=== PATIENT | female | born 1990 | race Caucasian/White ===

== ENCOUNTER 2024-07-02 15:32 | Inpatient (IN) | payer BC ==
[2024-07-02] MEDS ORDERED: LIDOCAINE 0.5% (PF) 5 MG/ML (50 ML SDV) SQ PRN (16:16)
[2024-07-02] MEDS ORDERED: OXYTOCIN 10 UNIT/ML 1 ML VIAL IM PRN (16:16)
[2024-07-02] MEDS ORDERED: METHYLERGONOVINE 0.2 MG/ML 1 ML AMP IM PRN ×2 (16:16→20:17)
[2024-07-02] MEDS ORDERED: miSOPROStoL 200 MCG TAB RECTAL PRN (16:16)
[2024-07-02] MEDS ORDERED: TRANEXAMIC 1,000 MG/100ML-NACL 1,000 MG in EMPTY BAG 1 BAG IV PRN (16:16)
[2024-07-02] MEDS ORDERED: CARBOPROST TROMETHAMINE 250 MCG/ML 1 ML AMP IM PRN ×2 (16:16→20:17)
[2024-07-02] MEDS ORDERED: miSOPROStoL 200 MCG TAB PO PRN (16:16)
[2024-07-02] MEDS ORDERED: TERBUTALINE 1 MG/ML VIAL SQ PRN (16:16)
[2024-07-02 16:37] LABS: Basophils % (A) 0 %; Eosinophils % (A) 0 %; HCT 34.8 % (34.0-46.0); HGB 11.7 gm/dL (11.4-16.0); Lymphocytes # (A) 2.1 k/uL (1.0-4.8); Lymphocytes % (A) 27 %; MCH 31.1 pg (25.0-35.0); MCHC 33.7 g/dL (31.0-37.0); MCV 92.5 fL (80.0-100.0); Mean Platelet Volume 8.4; Monocytes # (A) 0.3 k/uL (0-1.0); Monocytes % (A) 4 %; Neutrophils # (A) 5.1 k/uL (1.3-7.7); Neutrophils % (A) 66 %; Platelet Count 219 k/uL (150-450); RBC 3.76 m/uL (3.80-5.40); RDW 14.6 % (11.5-15.5); WBC 7.8 k/uL (3.8-10.6)
[2024-07-02] MEDS: DINOPROSTONE 10 MG INSERT.ER VAGINAL ONE (18:15)
--- NOTE | 2024-07-02 18:15 | P.HPOB ---
History of Present Illness H&P Date: 07/02/24 Chief Complaint: Postdates 33-year-old G2, P1 at 41 weeks of that presents for induction of labor. Patient has been receiving routine care which has been essentially uncomplicated. Patient notes good movement. Patient states her last was 10 days overdue with a induction of labor resulting in a spontaneous vaginal delivery. On blood work this patient is a blood type of O+, rubella status immune, hepatitis B surface engine negative, HIV negative, RPR is nonreactive, grew beta strep culture is negative. Review of Systems Constitutional: Denies chills, Denies fatigue, Denies fever Ears, nose, mouth and throat: Denies headache Cardiovascular: Reports leg edema Respiratory: Denies dyspnea Gastrointestinal: Denies constipation, Denies diarrhea, Denies nausea, Denies vomiting Genitourinary: Reports Past Medical History Past Medical History: Hypertension, Supraventricular Tachycardia (SVT) History of Any Multi-Drug Resistant Organisms: None Reported Past Surgical History: No Surgical Hx Reported Past Anesthesia/Blood Transfusion Reactions: No Reported Reaction Past Psychological History: No Psychological Hx Reported Smoking Status: Never smoker Past Alcohol Use History: None Reported Past Drug Use History: None Reported - Past Family History Father Family Medical History: No Reported History Medications and Allergies Home Medications Medication Instructions Recorded Confirmed Type Aspirin [Children's Aspirin] 1 tab PO DAILY 07/02/24 07/02/24 History Esomeprazole Magnesium [NexIUM 1 tab PO DAILY 07/02/24 07/02/24 History 24Hr] Metoprolol Tartrate [Lopressor] 1 tab PO BID 07/02/24 07/02/24 History Vit No.179/Iron/Folic 1 tab PO DAILY 07/02/24 07/02/24 History [ Tablet] Allergies Allergy/AdvReac Type Severity Reaction Status Date / Time Sulfa (Sulfonamide Allergy Rash/Hives Verified 07/02/24 16:13 Antibiotics) Exam Osteopathic Statement: *. No significant issues noted on an osteopathic structural exam other than those noted in the History and Physical/Consult. Vital Signs Temp Pulse Resp BP 07/02/24 17:58 97.2 F L 120 H 14 116/69 Intake and Output 07/02/24 07/02/24 07/02/24 06:59 14:59 22:59 Other: Weight 116.573 kg Targeted physical exam is performed on this date, in general is well-nourished well-developed female in no acute distress, breathing is nonlabored, heart has a regular rate and rhythm, abdomen is gravid, on cervical exam she is 1/thick/-3 station vertex presentation. After counseling patient elects Dilapan for induction of labor. Risks including bleeding, infection, rupture of membranes, onset of labor are discussed with the patient and all questions were answered. With informed consent obtained a sterile light speculum was placed into the vagina and the cervix was visualized. The cervix and gyne were cleaned with Betadine. A sponge stick was then placed to grasp the anterior lip of the cervix. Another sponge stick was used to grasp the handle of the Dilapan gary and inserted the gary through the external cervical os gradually and without force. This was then repeated until adequate rods were inserted. A total of 5 rods were inserted, at conclusion of the procedure there was no vaginal bleeding. All instruments were removed from the patient's vaginal vault at this time. Patient tolerated insertion well. Results Result Diagrams: 07/02/24 16:22 Abnormal Lab Results - Last 24 Hours (Table) 07/02/24 Range/Units 16:22 RBC 3.76 L (3.80-5.40) m/uL Assessment and Plan (1) Post-dates Current Visit: Yes Status: Acute Code(s): O48.0 - POST-TERM SNOMED Code(s): 85968829 Plan: 33-year-old G2, P1 at 41 weeks presents for induction of labor. Dilapan is placed without difficulty. Patient is counseled on options for analgesia, questions are answered. Anticipate spontaneous vaginal delivery.
[2024-07-02] MEDS ORDERED: NALBUPHINE 10 MG/ML (10 ML MDV) IV PRN (18:17)
[2024-07-02] MEDS: METOPROLOL TARTRATE 25 MG TAB PO SCH (20:22)
[2024-07-02] MEDS: LACTATED RINGERS 1,000 ML IV SCH (20:22)
[2024-07-02] MEDS: CITRIC ACID-SODIUM CITRATE 15 ML CUP PO ONE (20:26)
--- NOTE | 2024-07-02 20:38 | US ---
EXAMINATION TYPE: US OB limited DATE OF EXAM: 07/02/2024 COMPARISON: NONE CLINICAL INDICATION: Female, 33 years old with history of position check; Position check EXAM PERFORMED: Transabdominal (TA) FINDINGS: PRESENTATION: Breech LIE: Longitudinal HEART RATE: 132 bpm RHYTHM: Normal IMPRESSION: Limited OB ultrasound for position. There is breech presentation with longitudinal lie. F etal heart rate 132 BPM. [facility], , 07/02/2024 8:36 PM
[2024-07-02] MEDS ORDERED: ePHEDrine 50 MG/ML 1 ML VIAL ONE (20:54)
[2024-07-02] MEDS ORDERED: MORPHINE SULFATE (PF) 0.3 MG/0.3 ML SYR ONE (20:54)
[2024-07-02] MEDS ORDERED: METOPROLOL TARTRATE 25 MG PO SCH (21:00)
[2024-07-02] MEDS ORDERED: diphenhydrAMINE 50 MG/ML 1 ML VIAL IVP PRN ×2 (21:56)
[2024-07-02] MEDS ORDERED: diphenhydrAMINE 50 MG CAP PO PRN (21:56)
[2024-07-02] MEDS ORDERED: METOCLOPRAMIDE 5 MG/ML 2 ML VIAL IVP PRN (21:56)
[2024-07-02] MEDS ORDERED: OXYTOCIN 30 UNITS/500 ML NS 30 UNIT in SALINE 1 500ML.BAG IV SCH (21:56)
[2024-07-02] MEDS ORDERED: ONDANSETRON 4 MG/2 ML VIAL IVP PRN (21:56)
[2024-07-02] MEDS ORDERED: SIMETHICONE 80 MG CHEWABLE PO PRN (21:56)
[2024-07-02] MEDS ORDERED: diphenhydrAMINE 25 MG CAP PO PRN (21:56)
[2024-07-02] MEDS ORDERED: NALOXONE 0.4 MG/ML 1 ML VIAL IV PRN ×2 (21:56→22:31)
[2024-07-02] MEDS ORDERED: ZOLPIDEM 5 MG TAB PO PRN (21:56)
--- NOTE | 2024-07-02 21:56 | P.OP ---
Date of Procedure: 07/02/24 Preoperative Diagnosis: IUP at 41 and 0, breech presentation, meconium stained fluid Postoperative Diagnosis: Same plus uterine fibroid Procedure(s) Performed: Primary low-transverse section Anesthesia: spinal Surgeon: Kendra Laura Tubing Machine Operator #1: Chiara Anderson Estimated Blood Loss (ml): 561 IV fluids (ml): 1,000 Urine output (ml): 300 Pathology: none sent Condition: stable Disposition: observation Indications for Procedure: 33-year-old G2, P1 at 41-0/7 weeks that presented for induction of labor. Upon rupture of membranes heart tones were noted to be graphing in the upper abdomen, ultrasound performed breech presentation is appreciated. Patient is counseled on position and need for primary . Patient states understanding, informed consent is obtained. Operative Findings: Right lateral uterine fibroid appreciated, viable female infant delivered at 2123, weight of 8 pounds 10 ounces, ibrahima breech presentation, Apgars of 8 and 9 at 1 and 5 minutes respectively. Description of Procedure: The patient was prepped and draped in the usual fashion after spinal anesthesia was administered by the department. A Pfannenstiel incision was made and extended of the abdominal cavity without difficulty. The bladder peritoneum was elevated and incised and reflected distally. A 2 cm incision was made in the transverse plane of the lower uterine segment to enter the uterus at which time thick meconium stained fluid was noted. The incision was extended in both directions using the bandage scissors. The sacrum was encountered within the field and delivered up and through the incision where the nose and mouth were thoroughly suctioned. Remainder of the was delivered onto the surgical field where the cord was doubly clamped, cut, and the infant was passed for resuscitative measures with weight and Apgars as noted above. The placenta was delivered manually, intact, and was grossly normal with a grossly normal three-vessel cord. The uterus was exteriorized and the interior cavity of the uterus swept of any remaining placental and membranous fragments with a laparotomy sponge. The margins of the incision were grasped with Purvis clamps and the incision closed in 2 layers. First layer was a running locking layer of 0 Vicryl from margin to margin followed by a second layer of imbricat ing 0 Vicryl from margin to margin. Any small points of bleeding were then made hemostatic with the Bovie. Once hemostasis was achieved, the posterior cul-de-sac was suctioned with a guard and the uterine and ovarian findings are as noted above. The uterus was replaced within the abdominal cavity and the gutters swept of any remaining blood fluid or clot. The incision was again reexamined and hemostasis was noted to be excellent. Any small point of bleeding were made hemostatic with the Bovie. Once hemostasis was achieved the parietal peritoneum was loosely reapproximated. The layer of muscles were examined and made hemostatic with the Bovie. Attention was then turned to the fascia which was closed with 2 running stitches of 0 Vicryl proceeding from the lateral margins to the midpoint. The subcutaneous tissues were irrigated, made hemostatic with the Bovie, and reapproximated with a running stitch of 30 Vicryl. The skin was reapproximated with 4-0 Vicryl. Estimated blood loss for the case was approximately 561 mL. All sponge instrument and needle counts are correct. There were no complications. The patient tolerated the procedure well and proceeded to the recovery room in stable condition. Both mother and are resting comfortably in recovery.
[2024-07-02] MEDS ORDERED: MORPHINE SULFATE 2 MG/ML SYRINGE IVP PRN (22:31)
[2024-07-03] MEDS: ACETAMINOPHEN IV (For NPO) 1,000 MG in EMPTY BAG 1 BAG IVPB ONE (01:18)
[2024-07-03] MEDS: ACETAMINOPHEN TAB 500 MG TAB PO SCH (01:53)
[2024-07-03] MEDS: KETOROLAC 15 MG/ML 1 ML VIAL IVP PRN (04:12)
[2024-07-03 05:27] LABS: Basophils % (A) 0 %; Eosinophils % (A) 0 %; HCT 31.7 % (34.0-46.0); HGB 10.9 gm/dL (11.4-16.0); Lymphocytes # (A) 2.2 k/uL (1.0-4.8); Lymphocytes % (A) 23 %; MCH 31.3 pg (25.0-35.0); MCHC 34.3 g/dL (31.0-37.0); MCV 91.2 fL (80.0-100.0); Mean Platelet Volume 8.3; Monocytes # (A) 0.4 k/uL (0-1.0); Monocytes % (A) 4 %; Neutrophils # (A) 6.7 k/uL (1.3-7.7); Neutrophils % (A) 71 %; Platelet Count 183 k/uL (150-450); RBC 3.48 m/uL (3.80-5.40); RDW 14.8 % (11.5-15.5); WBC 9.6 k/uL (3.8-10.6)
--- NOTE | 2024-07-03 08:54 | P.PNOBGPC ---
Subjective - Subjective Principal diagnosis: s/p primary section Interval history: The patient is doing well this morning and had no acute events overnight. She has no complaints this morning. She reports minimal lochia, passing flatus, awaiting spontaneous void, ambulating, and eating/drinking without nausea or vomiting. She is her without difficulty. She denies chest pain, shortness of breathing, fevers, or chills overnight. She denies pain or swelling in the legs. Patient reports: Reports appetite normal, Reports voiding normally, Reports pain well controlled, Reports ambulating normally [place]: doing well, nursing well Objective - Vital Signs Latest vital signs: Vital Signs Temp Pulse Resp BP Pulse Ox 07/03/24 04:00 99 18 115/76 96 07/02/24 23:58 82 18 121/67 98 07/02/24 23:43 92 18 123/66 98 07/02/24 23:25 94 18 129/67 97 07/02/24 23:13 88 18 126/69 97 07/02/24 22:58 91 18 125/67 99 07/02/24 22:43 108 H 18 131/72 98 07/02/24 22:28 115 H 18 121/72 97 07/02/24 22:13 96 16 123/67 98 07/02/24 21:58 96.9 F L 106 H 18 123/63 98 07/02/24 17:58 97.2 F L 120 H 14 116/69 Intake and Output 07/02/24 07/03/24 07/03/24 22:59 06:59 14:59 Output Total 561 669 Balance -561 -669 Output: Urine 600 Uretheral (Vogt) 600 Output, Quantitative 561 69 Blood Loss Other: Weight 116.573 kg - Exam Extremities: Present: normal Abdomen: Present: normal appearance, soft Incision: Present: normal, dressed Uterus: Present: normal, firm - Labs Labs: Abnormal Lab Results - Last 24 Hours (Table) 07/02/24 07/03/24 Range/Units 16:22 05:03 RBC 3.76 L 3.48 L (3.80-5.40) m/uL Hgb 10.9 L (11.4-16.0) gm/dL Hct 31.7 L (34.0-46.0) % Assessment and Plan Assessment: 33 year old now POD#1 s/p primary section for breech presentation Plan: 1. Postoperative. Meeting all milestones appropriately at this time. Continue to monitor for void s/p vogt catheter. 2. Viable female at bedside. Doing well, nursing well. Dispo: Anticipate discharge home tomorrow.
[2024-07-03] MEDS: PRENATAL VIT-IRON-FOLIC ACID 1 EACH TABLET PO SCH (09:34)
[2024-07-03] MEDS: SENNOSIDES-DOCUSATE SODIUM 1 EACH TAB PO SCH (09:36)
[2024-07-03] MEDS: IBUPROFEN 800 MG TAB PO SCH (12:27)
[2024-07-03] MEDS: LACTATED RINGERS 1,000 ML IV SCH (12:31)
--- NOTE | 2024-07-03 12:34 | P.PN ---
Progress Note - Text Progress Note Date: 07/03/24 Postop day 1 from under spinal anesthesia with intrathecal morphine given for postop pain management. Patient is doing well. Pain is well controlled. On visual analog scale 2/10 Mild itching present No nausea or vomiting reported. No Headache or weakness and numbness in the legs. No complications from spinal anesthesia.
[2024-07-04] MEDS ORDERED: IBUPROFEN 800 MG TAB PO SCH
--- NOTE | 2024-07-04 08:40 | P.DS ---
Providers Date of admission: 07/02/24 15:32 Expected date of discharge: 07/04/24 Attending physician: Devi Perez MD Primary care physician: Stated None Hospital Course: Ms. Raphael is a 33 year old now POD#2 s/p primary section for breech presentation in labor. Her surgery was uncomplicated and she has met all post-operative milestones appropriately. The patient is doing well this morning and had no acute events overnight. She has no complaints this morning. She reports minimal lochia, passing flatus, voiding without difficulty, ambulating, and eating/drinking without nausea or vomiting. doing well at bedside, nursing is going well. She denies chest pain, shortness of breathing, fevers, or chills overnight. She denies pain or swelling in the legs. Postoperative restrictions are reviewed with the patient including pelvic rest for 6 weeks, no lifting heavier than 15 pounds for 6 weeks. The patient is encouraged to call the office if she experiences any heavy bleeding, foul-smelling discharge, br east complaints, or any if she has any other concerns. She will follow up in the office with in 2 weeks for postoperative exam. She will go home with Motrin and Tylenol PRN pain. All questions are answered. Assessment: 33 year old POD#2 s/p primary section for breech Patient Condition at Discharge: Good Plan - Discharge Summary Discharge Rx Participant: No New Discharge Prescriptions: New Ibuprofen [Motrin] 600 mg PO Q6HR PRN #30 tab PRN Reason: Mild Pain (Scale 1 To 3) Acetaminophen Tab [Tylenol] 650 mg PO Q6H PRN #30 tab PRN Reason: Mild Pain (Scale 1 To 3) No Action Vit No.179/Iron/Folic [ Tablet] 1 tab PO DAILY Metoprolol Tartrate [Lopressor] 1 tab PO BID Esomeprazole Magnesium [NexIUM 24Hr] 1 tab PO DAILY Aspirin [Children's Aspirin] 1 tab PO DAILY Discharge Medication List Aspirin [Children's Aspirin] 1 tab PO DAILY 07/02/24 [History] Esomeprazole Magnesium [NexIUM 24Hr] 1 tab PO DAILY 07/02/24 [History] Metoprolol Tartrate [Lopressor] 1 tab PO BID 07/02/24 [History] Vit No.179/Iron/Folic [ Tablet] 1 tab PO DAILY 07/02/24 [History] Acetaminophen Tab [Tylenol] 650 mg PO Q6H PRN #30 tab 07/04/24 [Rx] Ibuprofen [Motrin] 600 mg PO Q6HR PRN #30 tab 07/04/24 [Rx] Follow up Appointment(s)/Referral(s): Devi Perez MD [STAFF PHYSICIAN] - 2 Weeks Activity/Diet/Wound Care/Special Instructions: Instructions 1. Do not begin any exercise program for 3 weeks. 2. Do not resume sexual relations for 6 weeks or longer if uncomfortable. 3. You may take tub baths or showers at any time. 4. You may use tampons if desired after 6 weeks. 5. Keep any areas repaired with stitches clean and dry. 6. If you are not nursing, wear a good fitting, supportive bra during the day and limit fluid intake for at least 1 week to prevent breast engorgement. 7. Call the office, , within the next week to make appointment for your 6 week checkup if it has not already been made. 8. Report any of the following occurrences to the doctor promptly: a. Heavy, excessive bleeding b. Chills, fever c. Burning or frequency of urination d. Pain or redness and breasts if nursing e. Increasing pain or swelling of vulva (stitches). In addition to the above instructions, the following additional should be followed: 1. No heavy lifting or straining (exercising) until after 6 week checkup. 2. Keep abdominal incision clean and dry: You may wear a dressing if more comfortable. 3. Make office appointment for 2 weeks after delivery date. Discharge Disposition: HOME SELF-CARE
[2024-07-04 09:17] VITALS: BP 115/60; PULSE 86; RESP 16
[2024-07-04 12:00] VITALS: TEMP 98.7
== END 2024-07-04 14:23 | disposition home or self-care (01) | DRG 788 ==
LOC: 4FBP 15:32 → EDSTATUS 17:00
PROVIDERS: ADMIT Obstetrics & Gynecology; ATTEND Obstetrics & Gynecology
PROC: 10D00Z1 Extraction of Products of Conception, Low, Open Approach (ICD-10-PCS; principal; 2024-07-02 21:00)
DX: O48.0 Post-term pregnancy (principal); D25.9 Leiomyoma of uterus, unspecified; O16.4 Unspecified maternal hypertension, complicating childbirth; O32.1XX0 Maternal care for breech presentation, not applicable or unspecified; O34.13 Maternal care for benign tumor of corpus uteri, third trimester; O77.0 Labor and delivery complicated by meconium in amniotic fluid; Z37.0 Single live birth; Z3A.41 41 weeks gestation of pregnancy; Z79.82 Long term (current) use of aspirin
CPT/HCPCS: 59200; 76815; 85025; 86850; 86900; 86901